=== PATIENT | male | born 1935 | race Caucasian/White ===

== ENCOUNTER 2021-03-29 10:34 | Emergency (ER) | payer OTHER, BC ==
[2021-03-29] MEDS ORDERED: DIPHTH,PERTUSS(ACELL),TET 0.5 ML DISP.SYRIN IM ONE ×2 (11:02→11:12)
[2021-03-29 11:47] VITALS: PULSE 60; TEMP 98.1; BMI 28.0
[2021-03-29] MEDS ORDERED: ACETAMINOPHEN 325 MG TABLET (FP) PO ONE (12:21)
[2021-03-29] MEDS ORDERED: ACETAMINOPHEN 325 MG TABLET (FP) ONE (12:50)
[2021-03-29 14:41] VITALS: BP 158/86
== END 2021-03-29 15:00 | disposition home or self-care (01) ==
LOC: JER 10:34
PROC: 3E0234Z Introduction of Serum, Toxoid and Vaccine into Muscle, Percutaneous Approach (ICD-10-PCS; principal; 2021-03-29)
DX: S09.90XA Unspecified injury of head, initial encounter (principal); S50.311A Abrasion of right elbow, initial encounter; W01.198A Fall on same level from slipping, tripping and stumbling with subsequent striking against other object, initial encounter; Y92.89 Other specified places as the place of occurrence of the external cause
CPT/HCPCS: 70450-TC; 72125-TC; 73070-TC-RT-FY; 90471; 90715; 99285-25

== ENCOUNTER 2022-05-15 10:13 | Inpatient (IN) | payer OTHER, BC ==
[2022-05-15 11:44] LABS: INR 2.58 (0.83-1.09); PROTHROMBIN TIME (PATIENT) 29.9 SEC (9.7-13.0)
[2022-05-15 11:51] LABS: BASO % 0.7 % (0-2.0); EOS % 1.9 % (0-4.5); HEMATOCRIT 23.6 % (35.4-49); HEMOGLOBIN 7.7 GM/dL (11.7-16.9); LYMPH % 18.1 % (8-40); MCH 26.1 pg (25.7-33.7); MCHC 32.4 g/dl (32.0-35.9); MEAN CELL VOLUME 80.7 fl (80-96); MEAN PLT VOLUME 7.7 fl (7.5-11.1); MONO % 11.5 % (3.8-10.2); NEUT % 67.8 % (42.8-82.8); PLATELET COUNT 222 10^3/uL (134-434); RBC 2.93 M/mm3 (4.00-5.60); RDW 18.8 % (11.9-15.9); WHITE BLOOD COUNT 7.1 K/mm3 (4.0-10.0)
[2022-05-15 12:04] LABS: BLOOD UREA NITROGEN 27.9 mg/dL (7-18); CALCIUM 9.5 mg/dL (8.5-10.1)
[2022-05-15 12:07] LABS: CREATININE 1.1 mg/dL (0.55-1.3)
[2022-05-15 12:10] LABS: BILIRUBIN,TOTAL 0.8 mg/dL (0.2-1)
[2022-05-15 12:11] LABS: TOT PROT 6.1 g/dl (6.4-8.2)
[2022-05-15] MEDS ORDERED: ACETAMINOPHEN 325 MG TABLET (FP) PO PRN (13:52)
[2022-05-15] MEDS: MINERAL OIL/PET HY-PHL TOPICAL OINTMENT 454 GM JAR TP SCH (14:52)
[2022-05-15] MEDS ORDERED: PHYTONADIONE 10 MG/1 ML AMP IVPB ONE (15:35)
[2022-05-15] MEDS: PANTOPRAZOLE 40 MG TABLET PO SCH (17:20)
[2022-05-15] MEDS ORDERED: PHYTONADIONE 10 MG/1 ML AMP ONE (17:28)
[2022-05-15] MEDS ORDERED: POLYETHYLENE GLYCOL (HEALTHYLAX) 3350 17 GM PACKET ONE (17:28)
[2022-05-15] MEDS ORDERED: PANTOPRAZOLE 40 MG TABLET PO ONE (17:28)
[2022-05-15] MEDS: POLYETHYLENE GLYCOL (HEALTHYLAX) 3350 17 GM PACKET PO SCH (17:51)
[2022-05-15] MEDS: D5-1/2NS+10 MEQ KCL - 10 MEQ/1,000 ML INFUS.BAG IV SCH (18:55)
[2022-05-15] MEDS: INSULIN SLIDING SCALE (NOVOLOG) 1 VIAL SQ SCH (19:06)
[2022-05-15] MEDS ORDERED: IRON SUCROSE INJECTION 300 MG in SODIUM CHLORIDE 235 ML IVPB ONE (20:30)
[2022-05-15] MEDS: SENNOSIDES 8.6MG TABLET (FP) PO SCH (22:20)
[2022-05-15] MEDS: ATORVASTATIN CA 10 MG TABLET (FP) PO SCH (22:20)
[2022-05-15] MEDS: traZODone HCL 50 MG TABLET (FP) PO SCH (22:21)
[2022-05-15] MEDS: INSULIN (LEVEMIR) 100 UNITS/ML UNITS SQ SCH (22:28)
[2022-05-16 00:06] VITALS: BMI 25.9
[2022-05-16] MEDS: LEVOTHYROXINE NA 25 MCG TABLET (FP) PO SCH (06:29)
[2022-05-16] MEDS: INSULIN SLIDING SCALE (NOVOLOG) 1 VIAL SQ SCH ×3 (06:33→16:55)
[2022-05-16] MEDS: POLYETHYLENE GLYCOL (HEALTHYLAX) 3350 17 GM PACKET PO SCH (09:13)
[2022-05-16] MEDS: INSULIN (LEVEMIR) 100 UNITS/ML UNITS SQ SCH ×2 (09:13→21:47)
[2022-05-16] MEDS: RIVASTIGMINE 9.5 MG/24 HOURS TRANSDERMAL PATCH TD SCH (09:14)
[2022-05-16] MEDS: PANTOPRAZOLE 40 MG TABLET PO SCH (09:14)
[2022-05-16] MEDS: LOSARTAN POTASSIUM 50 MG TABLET PO SCH (09:14)
[2022-05-16] MEDS: CYANOCOBALAMIN 1,000 MCG TABLET (FP) PO SCH (09:14)
[2022-05-16] MEDS: metoPROLOL SUCCINATE 25 MG TAB.SR.24H (FP) PO SCH (09:14)
[2022-05-16] MEDS: MEMANTINE HCL 10 MG TABLET (FP) PO SCH ×2 (09:14→21:42)
[2022-05-16 09:26] LABS: INR 1.78 (0.83-1.09); PROTHROMBIN TIME (PATIENT) 20.6 SEC (9.7-13.0)
[2022-05-16] MEDS: MINERAL OIL/PET HY-PHL TOPICAL OINTMENT 454 GM JAR TP SCH (11:48)
[2022-05-16] MEDS: D5-1/2NS+10 MEQ KCL - 10 MEQ/1,000 ML INFUS.BAG IV SCH ×2 (11:48→20:18)
[2022-05-16] MEDS: traZODone HCL 50 MG TABLET (FP) PO SCH (21:40)
[2022-05-16] MEDS: SENNOSIDES 8.6MG TABLET (FP) PO SCH (21:41)
[2022-05-16] MEDS: ATORVASTATIN CA 10 MG TABLET (FP) PO SCH (21:41)
[2022-05-17] MEDS: LEVOTHYROXINE NA 25 MCG TABLET (FP) PO SCH (06:20)
[2022-05-17] MEDS: INSULIN SLIDING SCALE (NOVOLOG) 1 VIAL SQ SCH ×3 (06:20→17:10)
[2022-05-17] MEDS ORDERED: INSULIN (NOVOLOG) ASPART 100 UNITS/ML 10ML VIAL ONE ×2 (07:05→18:37)
[2022-05-17] MEDS: MEMANTINE HCL 10 MG TABLET (FP) PO SCH ×2 (09:42→21:52)
[2022-05-17] MEDS: metoPROLOL SUCCINATE 25 MG TAB.SR.24H (FP) PO SCH (09:43)
[2022-05-17] MEDS: LOSARTAN POTASSIUM 50 MG TABLET PO SCH (09:43)
[2022-05-17] MEDS: PANTOPRAZOLE 40 MG TABLET PO SCH (09:43)
[2022-05-17] MEDS: INSULIN (LEVEMIR) 100 UNITS/ML UNITS SQ SCH ×2 (09:43→21:53)
[2022-05-17] MEDS: POLYETHYLENE GLYCOL (HEALTHYLAX) 3350 17 GM PACKET PO SCH ×3 (09:44→21:53)
[2022-05-17] MEDS: RIVASTIGMINE 9.5 MG/24 HOURS TRANSDERMAL PATCH TD SCH (09:44)
[2022-05-17] MEDS: MINERAL OIL/PET HY-PHL TOPICAL OINTMENT 454 GM JAR TP SCH (09:44)
[2022-05-17] MEDS: CYANOCOBALAMIN 1,000 MCG TABLET (FP) PO SCH (09:45)
[2022-05-17 10:32] LABS: BASO % 0.3 % (0-2.0); EOS % 3.2 % (0-4.5); HEMATOCRIT 29.9 % (35.4-49); HEMOGLOBIN 9.7 GM/dL (11.7-16.9); LYMPH % 21.3 % (8-40); MCH 26.3 pg (25.7-33.7); MCHC 32.3 g/dl (32.0-35.9); MEAN CELL VOLUME 81.5 fl (80-96); MEAN PLT VOLUME 8.2 fl (7.5-11.1); MONO % 11.2 % (3.8-10.2); PLATELET COUNT 243 10^3/uL (134-434); RBC 3.67 M/mm3 (4.00-5.60); RDW 19.2 % (11.9-15.9); WHITE BLOOD COUNT 6.4 K/mm3 (4.0-10.0)
[2022-05-17 10:39] LABS: INR 1.5 (0.83-1.09); PROTHROMBIN TIME (PATIENT) 17.3 SEC (9.7-13.0)
[2022-05-17 11:09] LABS: BLOOD UREA NITROGEN 18.8 mg/dL (7-18); CALCIUM 9.9 mg/dL (8.5-10.1)
[2022-05-17 11:13] LABS: CREATININE 0.9 mg/dL (0.55-1.3)
[2022-05-17 11:20] LABS: RETICULOCYTES 1.06 % (0.5-1.5)
[2022-05-17] MEDS: D5-1/2NS+10 MEQ KCL - 10 MEQ/1,000 ML INFUS.BAG IV SCH ×2 (16:38→20:35)
[2022-05-17] MEDS: SENNOSIDES 8.6MG TABLET (FP) PO SCH (21:52)
[2022-05-17] MEDS: traZODone HCL 50 MG TABLET (FP) PO SCH (21:52)
[2022-05-17] MEDS: ATORVASTATIN CA 10 MG TABLET (FP) PO SCH (21:52)
[2022-05-18] MEDS: LEVOTHYROXINE NA 50 MCG TABLET (FP) PO SCH (06:59)
[2022-05-18] MEDS: POLYETHYLENE GLYCOL (HEALTHYLAX) 3350 17 GM PACKET PO SCH ×3 (06:59→21:29)
[2022-05-18] MEDS: INSULIN SLIDING SCALE (NOVOLOG) 1 VIAL SQ SCH ×3 (07:04→16:36)
[2022-05-18] MEDS: HYDROCHLOROTHIAZIDE 25 MG TABLET (FP) PO SCH (07:56)
[2022-05-18] MEDS: PANTOPRAZOLE 40 MG TABLET PO SCH (10:01)
[2022-05-18] MEDS: CYANOCOBALAMIN 1,000 MCG TABLET (FP) PO SCH (10:02)
[2022-05-18] MEDS: metoPROLOL SUCCINATE 25 MG TAB.SR.24H (FP) PO SCH (10:02)
[2022-05-18] MEDS: LOSARTAN POTASSIUM 50 MG TABLET PO SCH (10:02)
[2022-05-18] MEDS: INSULIN (LEVEMIR) 100 UNITS/ML UNITS SQ SCH ×2 (10:02→21:28)
[2022-05-18] MEDS: MEMANTINE HCL 10 MG TABLET (FP) PO SCH ×2 (10:02→21:32)
[2022-05-18] MEDS: RIVASTIGMINE 9.5 MG/24 HOURS TRANSDERMAL PATCH TD SCH (10:03)
[2022-05-18 10:17] LABS: BASO % 0.3 % (0-2.0); EOS % 2.6 % (0-4.5); HEMATOCRIT 27.9 % (35.4-49); HEMOGLOBIN 8.9 GM/dL (11.7-16.9); LYMPH % 16.9 % (8-40); MCH 26.2 pg (25.7-33.7); MCHC 31.9 g/dl (32.0-35.9); MEAN CELL VOLUME 82.2 fl (80-96); MEAN PLT VOLUME 8.2 fl (7.5-11.1); MONO % 10.6 % (3.8-10.2); NEUT % 69.6 % (42.8-82.8); PLATELET COUNT 223 10^3/uL (134-434); RDW 18.9 % (11.9-15.9); WHITE BLOOD COUNT 7.3 K/mm3 (4.0-10.0)
[2022-05-18 10:23] LABS: INR 1.5 (0.83-1.09); PROTHROMBIN TIME (PATIENT) 17.3 SEC (9.7-13.0)
[2022-05-18 10:42] LABS: CALCIUM 9.6 mg/dL (8.5-10.1)
[2022-05-18 10:43] LABS: BLOOD UREA NITROGEN 19.1 mg/dL (7-18)
[2022-05-18] MEDS: MINERAL OIL/PET HY-PHL TOPICAL OINTMENT 454 GM JAR TP SCH (10:54)
[2022-05-18] MEDS: D5-1/2NS+10 MEQ KCL - 10 MEQ/1,000 ML INFUS.BAG IV SCH (13:07)
[2022-05-18] MEDS: SENNOSIDES 8.6MG TABLET (FP) PO SCH (21:28)
[2022-05-18] MEDS: traZODone HCL 50 MG TABLET (FP) PO SCH (21:28)
[2022-05-18] MEDS: ATORVASTATIN CA 10 MG TABLET (FP) PO SCH (21:30)
[2022-05-19] MEDS: D5-1/2NS+10 MEQ KCL - 10 MEQ/1,000 ML INFUS.BAG IV SCH ×2 (00:37→13:15)
[2022-05-19] MEDS: LEVOTHYROXINE NA 50 MCG TABLET (FP) PO SCH (06:48)
[2022-05-19] MEDS: POLYETHYLENE GLYCOL (HEALTHYLAX) 3350 17 GM PACKET PO SCH ×3 (06:49→21:12)
[2022-05-19] MEDS: INSULIN (LEVEMIR) 100 UNITS/ML UNITS SQ SCH ×2 (07:02→16:42)
[2022-05-19] MEDS: INSULIN SLIDING SCALE (NOVOLOG) 1 VIAL SQ SCH ×3 (07:02→16:35)
[2022-05-19] MEDS: metoPROLOL SUCCINATE 25 MG TAB.SR.24H (FP) PO SCH (07:18)
[2022-05-19] MEDS: MINERAL OIL/PET HY-PHL TOPICAL OINTMENT 454 GM JAR TP SCH (09:53)
[2022-05-19] MEDS: CYANOCOBALAMIN 1,000 MCG TABLET (FP) PO SCH (09:54)
[2022-05-19] MEDS: LOSARTAN POTASSIUM 50 MG TABLET PO SCH (09:54)
[2022-05-19] MEDS: MEMANTINE HCL 10 MG TABLET (FP) PO SCH ×2 (09:54→21:12)
[2022-05-19] MEDS: PANTOPRAZOLE 40 MG TABLET PO SCH (09:54)
[2022-05-19] MEDS: HYDROCHLOROTHIAZIDE 25 MG TABLET (FP) PO SCH (09:54)
[2022-05-19] MEDS: RIVASTIGMINE 9.5 MG/24 HOURS TRANSDERMAL PATCH TD SCH (09:55)
[2022-05-19 10:04] LABS: BASO % 0.3 % (0-2.0); EOS % 1.2 % (0-4.5); HEMATOCRIT 27.7 % (35.4-49); HEMOGLOBIN 9.1 GM/dL (11.7-16.9); LYMPH % 16.4 % (8-40); MCHC 32.9 g/dl (32.0-35.9); MEAN PLT VOLUME 7.6 fl (7.5-11.1); MONO % 11.2 % (3.8-10.2); NEUT % 70.9 % (42.8-82.8); PLATELET COUNT 208 10^3/uL (134-434); RBC 3.37 M/mm3 (4.00-5.60); RDW 18.8 % (11.9-15.9); WHITE BLOOD COUNT 7.1 K/mm3 (4.0-10.0)
[2022-05-19 10:11] LABS: INR 1.4 (0.83-1.09); PROTHROMBIN TIME (PATIENT) 16.1 SEC (9.7-13.0)
[2022-05-19 10:25] LABS: CALCIUM 9.5 mg/dL (8.5-10.1)
[2022-05-19 10:26] LABS: BLOOD UREA NITROGEN 19.2 mg/dL (7-18)
[2022-05-19] MEDS ORDERED: INSULIN (NOVOLOG) ASPART 100 UNITS/ML 10ML VIAL ONE ×3 (11:02→18:47)
[2022-05-19] MEDS ORDERED: BISACODYL 5 MG TABLET.DR (FP) PO ONE (16:00)
[2022-05-19] MEDS ORDERED: PEG 3350/NA SULF BICARB CL/KCL 4000 ML SOLN.RECON PO ONE (17:00)
[2022-05-19] MEDS: ATORVASTATIN CA 10 MG TABLET (FP) PO SCH (21:11)
[2022-05-19] MEDS: traZODone HCL 50 MG TABLET (FP) PO SCH (21:11)
[2022-05-19] MEDS: SENNOSIDES 8.6MG TABLET (FP) PO SCH (21:11)
[2022-05-20] MEDS: D5-1/2NS+10 MEQ KCL - 10 MEQ/1,000 ML INFUS.BAG IV SCH ×3 (06:04→18:31)
[2022-05-20] MEDS: POLYETHYLENE GLYCOL (HEALTHYLAX) 3350 17 GM PACKET PO SCH ×2 (06:34→13:56)
[2022-05-20] MEDS: LEVOTHYROXINE NA 25 MCG TABLET (FP) PO SCH (06:34)
[2022-05-20] MEDS: INSULIN (LEVEMIR) 100 UNITS/ML UNITS SQ SCH ×2 (06:35→16:26)
[2022-05-20] MEDS: INSULIN SLIDING SCALE (NOVOLOG) 1 VIAL SQ SCH ×3 (06:37→16:27)
[2022-05-20] MEDS: PANTOPRAZOLE 40 MG TABLET PO SCH (09:24)
[2022-05-20] MEDS: MEMANTINE HCL 10 MG TABLET (FP) PO SCH ×2 (09:24→22:05)
[2022-05-20] MEDS: metoPROLOL SUCCINATE 25 MG TAB.SR.24H (FP) PO SCH (09:24)
[2022-05-20] MEDS: LOSARTAN POTASSIUM 50 MG TABLET PO SCH (09:24)
[2022-05-20] MEDS: MINERAL OIL/PET HY-PHL TOPICAL OINTMENT 454 GM JAR TP SCH (09:24)
[2022-05-20] MEDS: HYDROCHLOROTHIAZIDE 25 MG TABLET (FP) PO SCH (09:24)
[2022-05-20] MEDS: CYANOCOBALAMIN 1,000 MCG TABLET (FP) PO SCH (09:25)
[2022-05-20] MEDS: RIVASTIGMINE 9.5 MG/24 HOURS TRANSDERMAL PATCH TD SCH (09:25)
[2022-05-20 10:34] LABS: BASO % 0.2 % (0-2.0); EOS % 1.2 % (0-4.5); HEMATOCRIT 28.7 % (35.4-49); HEMOGLOBIN 9.5 GM/dL (11.7-16.9); LYMPH % 12.3 % (8-40); MCHC 33.1 g/dl (32.0-35.9); MEAN CELL VOLUME 81.6 fl (80-96); MEAN PLT VOLUME 8.2 fl (7.5-11.1); MONO % 9.4 % (3.8-10.2); NEUT % 76.9 % (42.8-82.8); PLATELET COUNT 232 10^3/uL (134-434); RBC 3.52 M/mm3 (4.00-5.60); RDW 19.1 % (11.9-15.9); WHITE BLOOD COUNT 8.7 K/mm3 (4.0-10.0)
[2022-05-20 10:37] LABS: INR 1.4 (0.83-1.09); PROTHROMBIN TIME (PATIENT) 16.1 SEC (9.7-13.0)
[2022-05-20 10:56] LABS: CALCIUM 9.2 mg/dL (8.5-10.1)
[2022-05-20 10:57] LABS: BLOOD UREA NITROGEN 14.7 mg/dL (7-18)
[2022-05-20 11:00] LABS: CREATININE 0.9 mg/dL (0.55-1.3)
[2022-05-20] MEDS ORDERED: EPINEPHrine 1:10,000 (P-F SYR) 1 MG/10 ML DISP.SYRIN IM ONE ×2 (11:58)
[2022-05-20] MEDS ORDERED: BISACODYL 5 MG TABLET.DR (FP) PO ONE (14:00)
[2022-05-20] MEDS ORDERED: PEG 3350/NA SULF BICARB CL/KCL 4000 ML SOLN.RECON PO ONE (17:00)
[2022-05-20] MEDS ORDERED: INSULIN (NOVOLOG) ASPART 100 UNITS/ML 10ML VIAL ONE (18:56)
[2022-05-20] MEDS: traZODone HCL 50 MG TABLET (FP) PO SCH (22:05)
[2022-05-20] MEDS: ATORVASTATIN CA 10 MG TABLET (FP) PO SCH (22:05)
[2022-05-21] MEDS: SENNOSIDES 8.6MG TABLET (FP) PO SCH ×2 (00:56→21:47)
[2022-05-21] MEDS: POLYETHYLENE GLYCOL (HEALTHYLAX) 3350 17 GM PACKET PO SCH ×4 (00:56→21:49)
[2022-05-21] MEDS ORDERED: INSULIN (NOVOLOG) ASPART 100 UNITS/ML 10ML VIAL ONE (07:47)
[2022-05-21] MEDS: INSULIN (LEVEMIR) 100 UNITS/ML UNITS SQ SCH ×2 (07:54→21:50)
[2022-05-21] MEDS: INSULIN SLIDING SCALE (NOVOLOG) 1 VIAL SQ SCH ×3 (07:55→16:52)
[2022-05-21] MEDS: LEVOTHYROXINE NA 25 MCG TABLET (FP) PO SCH (08:22)
[2022-05-21] MEDS: D5-1/2NS+10 MEQ KCL - 10 MEQ/1,000 ML INFUS.BAG IV SCH (08:23)
[2022-05-21] MEDS: MINERAL OIL/PET HY-PHL TOPICAL OINTMENT 454 GM JAR TP SCH (09:12)
[2022-05-21] MEDS: CYANOCOBALAMIN 1,000 MCG TABLET (FP) PO SCH (09:13)
[2022-05-21] MEDS: HYDROCHLOROTHIAZIDE 25 MG TABLET (FP) PO SCH (09:13)
[2022-05-21] MEDS: MEMANTINE HCL 10 MG TABLET (FP) PO SCH ×2 (09:13→21:47)
[2022-05-21] MEDS: PANTOPRAZOLE 40 MG TABLET PO SCH (09:13)
[2022-05-21] MEDS: LOSARTAN POTASSIUM 50 MG TABLET PO SCH (09:13)
[2022-05-21] MEDS: metoPROLOL SUCCINATE 25 MG TAB.SR.24H (FP) PO SCH (09:13)
[2022-05-21] MEDS: RIVASTIGMINE 9.5 MG/24 HOURS TRANSDERMAL PATCH TD SCH (09:13)
[2022-05-21 11:00] LABS: BASO % 0.4 % (0-2.0); EOS % 2.9 % (0-4.5); HEMOGLOBIN 8.9 GM/dL (11.7-16.9); LYMPH % 14.9 % (8-40); MCH 26.9 pg (25.7-33.7); MCHC 33.1 g/dl (32.0-35.9); MEAN CELL VOLUME 81.1 fl (80-96); MEAN PLT VOLUME 7.9 fl (7.5-11.1); NEUT % 69.8 % (42.8-82.8); PLATELET COUNT 224 10^3/uL (134-434); RBC 3.33 M/mm3 (4.00-5.60); RDW 19.2 % (11.9-15.9); WHITE BLOOD COUNT 7.3 K/mm3 (4.0-10.0)
[2022-05-21 11:26] LABS: CALCIUM 9.3 mg/dL (8.5-10.1)
[2022-05-21 11:27] LABS: BLOOD UREA NITROGEN 13.9 mg/dL (7-18)
[2022-05-21] MEDS: KCL 10 MEQ IVPB 10 MEQ/100 ML INFUS.BAG IVPB SCH ×3 (16:43→18:51)
[2022-05-21] MEDS: traZODone HCL 50 MG TABLET (FP) PO SCH (21:48)
[2022-05-21] MEDS: ATORVASTATIN CA 10 MG TABLET (FP) PO SCH (21:49)
[2022-05-22 04:58] VITALS: RESP 20
[2022-05-22] MEDS: POLYETHYLENE GLYCOL (HEALTHYLAX) 3350 17 GM PACKET PO SCH ×3 (05:45→21:46)
[2022-05-22] MEDS: INSULIN SLIDING SCALE (NOVOLOG) 1 VIAL SQ SCH ×3 (06:20→16:50)
[2022-05-22] MEDS: INSULIN (LEVEMIR) 100 UNITS/ML UNITS SQ SCH ×2 (06:21→21:48)
[2022-05-22] MEDS: LEVOTHYROXINE NA 25 MCG TABLET (FP) PO SCH (06:24)
[2022-05-22 09:45] LABS: BASO % 0.4 % (0-2.0); EOS % 3.7 % (0-4.5); HEMATOCRIT 27.6 % (35.4-49); LYMPH % 18.5 % (8-40); MCH 26.5 pg (25.7-33.7); MCHC 32.4 g/dl (32.0-35.9); MEAN CELL VOLUME 81.8 fl (80-96); MEAN PLT VOLUME 7.9 fl (7.5-11.1); MONO % 11.6 % (3.8-10.2); NEUT % 65.8 % (42.8-82.8); PLATELET COUNT 229 10^3/uL (134-434); RBC 3.38 M/mm3 (4.00-5.60); RDW 19.5 % (11.9-15.9); WHITE BLOOD COUNT 6.7 K/mm3 (4.0-10.0)
[2022-05-22 09:51] LABS: INR 1.28 (0.83-1.09); PROTHROMBIN TIME (PATIENT) 14.8 SEC (9.7-13.0)
[2022-05-22] MEDS: D5-1/2NS+10 MEQ KCL - 10 MEQ/1,000 ML INFUS.BAG IV SCH ×2 (10:00→17:19)
[2022-05-22] MEDS: metoPROLOL SUCCINATE 25 MG TAB.SR.24H (FP) PO SCH (10:05)
[2022-05-22] MEDS: PANTOPRAZOLE 40 MG TABLET PO SCH (10:05)
[2022-05-22] MEDS: MEMANTINE HCL 10 MG TABLET (FP) PO SCH ×2 (10:05→21:42)
[2022-05-22] MEDS: CYANOCOBALAMIN 1,000 MCG TABLET (FP) PO SCH (10:06)
[2022-05-22] MEDS: MINERAL OIL/PET HY-PHL TOPICAL OINTMENT 454 GM JAR TP SCH (10:06)
[2022-05-22] MEDS: HYDROCHLOROTHIAZIDE 25 MG TABLET (FP) PO SCH (10:06)
[2022-05-22] MEDS: LOSARTAN POTASSIUM 50 MG TABLET PO SCH (10:06)
[2022-05-22] MEDS: RIVASTIGMINE 9.5 MG/24 HOURS TRANSDERMAL PATCH TD SCH (10:06)
[2022-05-22 10:07] LABS: CALCIUM 9.2 mg/dL (8.5-10.1)
[2022-05-22 10:08] LABS: ALBUMIN 2.6 g/dl (3.4-5.0)
[2022-05-22 10:11] LABS: CREATININE 0.9 mg/dL (0.55-1.3)
[2022-05-22 10:13] LABS: BILIRUBIN,TOTAL 1.2 mg/dL (0.2-1); TOT PROT 5.6 g/dl (6.4-8.2)
[2022-05-22] MEDS ORDERED: INSULIN (NOVOLOG) ASPART 100 UNITS/ML 10ML VIAL ONE (11:41)
[2022-05-22] MEDS: ATORVASTATIN CA 10 MG TABLET (FP) PO SCH (21:42)
[2022-05-22] MEDS: traZODone HCL 50 MG TABLET (FP) PO SCH (21:42)
[2022-05-22] MEDS: SENNOSIDES 8.6MG TABLET (FP) PO SCH (21:48)
[2022-05-23] MEDS: LEVOTHYROXINE NA 25 MCG TABLET (FP) PO SCH (06:32)
[2022-05-23] MEDS: INSULIN SLIDING SCALE (NOVOLOG) 1 VIAL SQ SCH ×3 (06:33→17:07)
[2022-05-23] MEDS: POLYETHYLENE GLYCOL (HEALTHYLAX) 3350 17 GM PACKET PO SCH ×3 (06:35→21:49)
[2022-05-23] MEDS: INSULIN (LEVEMIR) 100 UNITS/ML UNITS SQ SCH ×4 (06:35→21:50)
[2022-05-23] MEDS: D5-1/2NS+10 MEQ KCL - 10 MEQ/1,000 ML INFUS.BAG IV SCH (07:36)
[2022-05-23] MEDS: MINERAL OIL/PET HY-PHL TOPICAL OINTMENT 454 GM JAR TP SCH (10:08)
[2022-05-23] MEDS: metoPROLOL SUCCINATE 25 MG TAB.SR.24H (FP) PO SCH (10:09)
[2022-05-23] MEDS: RIVASTIGMINE 9.5 MG/24 HOURS TRANSDERMAL PATCH TD SCH (10:09)
[2022-05-23] MEDS: LOSARTAN POTASSIUM 50 MG TABLET PO SCH (10:09)
[2022-05-23] MEDS: MEMANTINE HCL 10 MG TABLET (FP) PO SCH ×2 (10:09→21:49)
[2022-05-23] MEDS: PANTOPRAZOLE 40 MG TABLET PO SCH (10:09)
[2022-05-23] MEDS: HYDROCHLOROTHIAZIDE 25 MG TABLET (FP) PO SCH (10:09)
[2022-05-23] MEDS: CYANOCOBALAMIN 1,000 MCG TABLET (FP) PO SCH (10:09)
[2022-05-23] MEDS ORDERED: INSULIN (NOVOLOG) ASPART 100 UNITS/ML 10ML VIAL ONE ×2 (11:41→18:29)
[2022-05-23 11:45] LABS: BASO % 0.3 % (0-2.0); HEMATOCRIT 27.2 % (35.4-49); HEMOGLOBIN 8.7 GM/dL (11.7-16.9); LYMPH % 18.2 % (8-40); MCH 26.4 pg (25.7-33.7); MCHC 31.9 g/dl (32.0-35.9); MEAN CELL VOLUME 82.6 fl (80-96); MONO % 10.8 % (3.8-10.2); NEUT % 66.7 % (42.8-82.8); PLATELET COUNT 226 10^3/uL (134-434); WHITE BLOOD COUNT 6.1 K/mm3 (4.0-10.0)
[2022-05-23 12:15] LABS: CHLORIDE 99 mmol/L (98-107); SODIUM 136 mmol/L (136-145)
[2022-05-23 12:32] LABS: ALBUMIN 2.6 g/dl (3.4-5.0); ALK PHOS 151 U/L (45-117); ANION GAP 9 MMOL/L (8-16); BILIRUBIN,TOTAL 1.5 mg/dL (0.2-1); BLOOD UREA NITROGEN 12.8 mg/dL (7-18); CALCIUM 9.4 mg/dL (8.5-10.1); CO2 28 mmol/L (21-32); SGOT/AST 22 U/L (15-37); SGPT/ALT 23 U/L (13-61); TOT PROT 5.5 g/dl (6.4-8.2)
[2022-05-23 12:34] LABS: GLUCOSE,RANDOM 430 mg/dL (74-106)
[2022-05-23] MEDS: traZODone HCL 50 MG TABLET (FP) PO SCH (21:48)
[2022-05-23] MEDS: SENNOSIDES 8.6MG TABLET (FP) PO SCH (21:49)
[2022-05-23] MEDS: ATORVASTATIN CA 10 MG TABLET (FP) PO SCH (21:49)
[2022-05-24] MEDS: INSULIN SLIDING SCALE (NOVOLOG) 1 VIAL SQ SCH ×3 (06:55→16:20)
[2022-05-24] MEDS: LEVOTHYROXINE NA 25 MCG TABLET (FP) PO SCH (06:56)
[2022-05-24] MEDS: INSULIN (LEVEMIR) 100 UNITS/ML UNITS SQ SCH ×2 (06:56→21:52)
[2022-05-24] MEDS: POLYETHYLENE GLYCOL (HEALTHYLAX) 3350 17 GM PACKET PO SCH ×3 (06:57→21:52)
[2022-05-24] MEDS ORDERED: INSULIN (NOVOLOG) ASPART 100 UNITS/ML 10ML VIAL ONE ×2 (07:33→11:48)
[2022-05-24 09:52] VITALS: PULSE 60
[2022-05-24] MEDS: D5-1/2NS+10 MEQ KCL - 10 MEQ/1,000 ML INFUS.BAG IV SCH (10:02)
[2022-05-24] MEDS: HYDROCHLOROTHIAZIDE 25 MG TABLET (FP) PO SCH (10:03)
[2022-05-24] MEDS: MINERAL OIL/PET HY-PHL TOPICAL OINTMENT 454 GM JAR TP SCH (10:03)
[2022-05-24] MEDS: metoPROLOL SUCCINATE 25 MG TAB.SR.24H (FP) PO SCH (10:03)
[2022-05-24] MEDS: PANTOPRAZOLE 40 MG TABLET PO SCH (10:03)
[2022-05-24] MEDS: CYANOCOBALAMIN 1,000 MCG TABLET (FP) PO SCH (10:04)
[2022-05-24] MEDS: RIVASTIGMINE 9.5 MG/24 HOURS TRANSDERMAL PATCH TD SCH (10:04)
[2022-05-24] MEDS: LOSARTAN POTASSIUM 50 MG TABLET PO SCH (10:04)
[2022-05-24] MEDS: MEMANTINE HCL 10 MG TABLET (FP) PO SCH ×2 (10:04→21:50)
[2022-05-24 12:23] LABS: BASO % 0.3 % (0-2.0); EOS % 3.9 % (0-4.5); HEMATOCRIT 29.8 % (35.4-49); HEMOGLOBIN 9.4 GM/dL (11.7-16.9); LYMPH % 17.7 % (8-40); MCH 26.3 pg (25.7-33.7); MCHC 31.7 g/dl (32.0-35.9); MEAN CELL VOLUME 83.1 fl (80-96); MEAN PLT VOLUME 7.8 fl (7.5-11.1); MONO % 8.4 % (3.8-10.2); NEUT % 69.7 % (42.8-82.8); PLATELET COUNT 225 10^3/uL (134-434); RBC 3.59 M/mm3 (4.00-5.60); RDW 18.9 % (11.9-15.9); WHITE BLOOD COUNT 7.1 K/mm3 (4.0-10.0)
[2022-05-24 13:45] VITALS: BP 143/66; TEMP 97.6
[2022-05-24] MEDS: SENNOSIDES 8.6MG TABLET (FP) PO SCH (21:50)
[2022-05-24] MEDS: traZODone HCL 50 MG TABLET (FP) PO SCH (21:50)
[2022-05-24] MEDS: ATORVASTATIN CA 10 MG TABLET (FP) PO SCH (21:51)
== END 2022-05-24 23:23 | disposition home or self-care (01) | DRG 375 ==
LOC: JER 10:13 → JERBED 12:20 → J6S 21:42
PROVIDERS: ADMIT Internal Medicine; ATTEND Internal Medicine
PROC: 30233N1 Transfusion of Nonautologous Red Blood Cells into Peripheral Vein, Percutaneous Approach (ICD-10-PCS; 2022-05-15)
PROC: 0W3P8ZZ Control Bleeding in Gastrointestinal Tract, Via Natural or Artificial Opening Endoscopic (ICD-10-PCS; 2022-05-20)
PROC: 0DB68ZX Excision of Stomach, Via Natural or Artificial Opening Endoscopic, Diagnostic (ICD-10-PCS; 2022-05-20)
PROC: 3E0G8GC Introduction of Other Therapeutic Substance into Upper GI, Via Natural or Artificial Opening Endoscopic (ICD-10-PCS; 2022-05-20)
PROC: 0DBL8ZX Excision of Transverse Colon, Via Natural or Artificial Opening Endoscopic, Diagnostic (ICD-10-PCS; principal; 2022-05-21 14:15)
DX: C16.9 Malignant neoplasm of stomach, unspecified (principal); I42.9 Cardiomyopathy, unspecified; D50.9 Iron deficiency anemia, unspecified; I48.91 Unspecified atrial fibrillation; I25.10 Atherosclerotic heart disease of native coronary artery without angina pectoris; E03.9 Hypothyroidism, unspecified; E11.9 Type 2 diabetes mellitus without complications; I10 Essential (primary) hypertension; F03.90 Unspecified dementia, unspecified severity, without behavioral disturbance, psychotic disturbance, mood disturbance, and anxiety; K59.00 Constipation, unspecified; K64.8 Other hemorrhoids; K29.50 Unspecified chronic gastritis without bleeding; Z95.1 Presence of aortocoronary bypass graft; D12.3 Benign neoplasm of transverse colon; Z86.73 Personal history of transient ischemic attack (TIA), and cerebral infarction without residual deficits
CPT/HCPCS: 36415; 36430; 71045-TC-FY; 74177-TC; 80048; 80053; 82272; 82378; 82607; 82728; 82747; 82962; 82977; 83010; 83540; 83550; 83615; 84443; 85014; 85025; 85045; 85610; 86850; 86900; 86901; 86922; 88305-TC; 93005; 93010; 97116-GP; 97162-GP; 99285-25; C9803-CS; J1756; P9058; Q9967; U0003; U0005